=== PATIENT | male | born 1995 | race American Indian/Alaskan Native ===

== ENCOUNTER 2018-07-05 08:17 | Emergency (ER) | payer OTHER ==
[2018-07-05] MEDS ORDERED: ZOFRAN IV ONE (08:32)
[2018-07-05] MEDS ORDERED: MORPHINE IV ONE (08:32)
[2018-07-05] MEDS ORDERED: NACL 0.9% 1000 ML 1,000 ML IV ONE (08:32)
[2018-07-05] MEDS ORDERED: ZOFRAN ONE (08:34)
[2018-07-05] MEDS ORDERED: MORPHINE ONE (08:35)
[2018-07-05 09:34] LABS: Basophils % (Auto) 0.4 % (0.0-1.8); Eosinophils % (Auto) 0.6 % (0.0-4.3); Hematocrit 38.5 % (35.5-45.6); Hemoglobin 12.5 gm/dl (11.8-15.2); Lymphocytes # (Auto) 1.8 K/mm3 (1.2-5.4); Lymphocytes % (Auto) 28.1 % (13.4-35.0); Mean Corpuscular HGB Conc 32 % (32-34); Mean Corpuscular Volume 74 fl (84-94); Monocytes # (Auto) 0.4 K/mm3 (0.0-0.8); Monocytes % (Auto) 5.7 % (0.0-7.3); Platelet Count 354 K/mm3 (140-440); Red Cell Distribution Width 13.8 % (13.2-15.2)
[2018-07-05 09:47] LABS: Creatine Kinase MB 2.9 ng/mL (0.0-4.0)
[2018-07-05 09:48] LABS: Albumin 4.3 g/dL (3.9-5); BUN/Creatinine Ratio 14; Blood Urea Nitrogen 15 mg/dL (9-20); Calcium 8.9 mg/dL (8.4-10.2); Hemolysis Index 7
[2018-07-05] MEDS ORDERED: DILAUDID ONE (09:49)
[2018-07-05] MEDS ORDERED: DILAUDID IM ONE (09:51)
[2018-07-05] MEDS ORDERED: DILAUDID IV ONE (09:53)
[2018-07-05 09:59] VITALS: BP 100/72
[2018-07-05 10:33] LABS: Alanine Aminotransferase 95 units/L (7-56)
[2018-07-05 10:38] LABS: Bilirubin,Direct < 0.2 mg/dL (0-0.2)
--- NOTE | 2018-07-05 11:07 | Emergency Department Report ---
ED General Adult HPI - General Chief complaint: Abdominal Pain Stated complaint: FLANK PAIN Time Seen by Provider: 07/05/18 08:30 Source: EMS Mode of arrival: Stretcher Limitations: Other - History of Present Illness Initial comments: 23-year-old female with the acute onset of right flank pain. It did not radiate until he arrived here at which time there was radiation to the groin. He did complain of nausea and vomited once. He was treated with analgesia on arrival presumptively for renal colic. At time of my encounter his pain has resolved. He tells me that he has no known family history of kidney stone nor any prior renal colic. He denies fever or chills or dysuria. -: Sudden, hour(s) Location: right Radiation: other Severity scale (0 -10): 6 Quality: aching Consistency: constant Improves with: none Worsens with: none Associated Symptoms: denies other symptoms, nausea/vomiting Treatments Prior to Arrival: none - Related Data Previous Rx's Medication Instructions Recorded Last Taken Type HYDROcodone/APAP 5-325 [[place] 1 each PO Q6HR PRN #7 tablet 07/05/18 Unknown Rx 5/325] Allergies Allergy/AdvReac Type Severity Reaction Status Date / Time No Known Allergies Allergy Unverified 07/05/18 08:58 ED Review of Systems ROS: Stated complaint: FLANK PAIN Other details as noted in HPI Constitutional: denies: chills, fever Eyes: denies: eye pain, eye discharge, vision change ENT: denies: ear pain, throat pain Respiratory: denies: cough, shortness of breath, wheezing Cardiovascular: denies: chest pain, palpitations Endocrine: no symptoms reported Gastrointestinal: denies: abdominal pain, nausea, diarrhea Genitourinary: denies: urgency, dysuria Musculoskeletal: denies: back pain, joint swelling, arthralgia Skin: denies: rash, lesions Neurological: denies: headache, weakness, paresthesias Psychiatric: denies: anxiety, depression Hematological/Lymphatic: denies: easy bleeding, easy bruising ED Past Medical Hx - Past Medical History Previous Medical History?: No - Surgical History Past Surgical History?: No - Social History Smoking Status: Never Smoker - Medications Home Medications: Home Medications Medication Instructions Recorded Confirmed Last Taken Type HYDROcodone/APAP 5-325 [[place] 1 each PO Q6HR PRN #7 tablet 07/05/18 Unknown Rx 5/325] ED Physical Exam - General Limitations: Other (initially quite uncomfortable) General appearance: alert, in no apparent distress (now in no distress) - Head Head exam: Present: atraumatic, normocephalic - Eye Eye exam: Present: normal appearance. Absent: scleral icterus - ENT ENT exam: Present: mucous membranes moist - Neck Neck exam: Present: normal inspection. Absent: tenderness, meningismus - Respiratory Respiratory exam: Present: normal lung sounds bilaterally. Absent: respiratory distress - Cardiovascular Cardiovascular Exam: Present: regular rate, normal rhythm. Absent: systolic murmur, diastolic murmur, rubs, gallop - GI/Abdominal GI/Abdominal exam: Present: soft, normal bowel sounds. Absent: distended, tenderness, guarding, rebound, rigid - Rectal Rectal exam: Present: deferred - Extremities Exam Extremities exam: Present: normal inspection - Back Exam Back exam: Present: normal inspection - Neurological Exam Neurological exam: Present: alert, oriented X3, CN II-XII intact. Absent: motor sensory deficit - Psychiatric Psychiatric exam: Present: normal affect, normal mood - Skin Skin exam: Present: warm, dry, intact, normal color. Absent: rash ED Course Vital Signs 07/05/18 07/05/18 08:28 09:59 Temperature 97.6 F Pulse Rate 68 72 Respiratory 22 16 Rate Blood Pressure 109/89 Blood Pressure 100/72 [Left] O2 Sat by Pulse 100 100 Oximetry - Reevaluation(s) Reevaluation #1: Proved with analgesia. Still awaiting urinalysis. 07/05/18 11:06 ED Medical Decision Making - Lab Data Result diagrams: 07/05/18 09:16 07/05/18 09:16 Laboratory Results - last 24 hr 07/05/18 07/05/18 09:16 09:16 WBC 6.4 RBC 5.20 H Hgb 12.5 Hct 38.5 MCV 74 L MCH 24 L MCHC 32 RDW 13.8 Plt Count 354 Lymph % (Auto) 28.1 [place] % (Auto) 5.7 Eos % (Auto) 0.6 Baso % (Auto) 0.4 Lymph # 1.8 [place] # 0.4 Eos # 0.0 Baso # 0.0 Seg Neutrophils % 65.2 Seg Neutrophils # 4.2 Sodium 142 Potassium 4.2 Chloride 107.4 H Carbon Dioxide 23 Anion Gap 16 BUN 15 Creatinine 1.1 Estimated GFR > 60 BUN/Creatinine Ratio 14 Glucose 93 Calcium 8.9 Total Bilirubin 0.60 Direct Bilirubin < 0.2 Indirect Bilirubin 0.4 AST 49 H ALT 95 H Alkaline Phosphatase 59 Total Creatine Kinase 572 H CK-MB (CK-2) 2.9 CK-MB (CK-2) Rel Index 0.5 Total Protein 6.8 Albumin 4.3 Albumin/Globulin Ratio 1.7 - Radiology Data Radiology results: report reviewed (3 mm stone with mild hydro-at right UVJ) Critical care attestation.: If time is entered above; I have spent that time in minutes in the direct care of this critically ill patient, excluding procedure time. ED Disposition Clinical Impression: Renal colic on right side, Ureterolithiasis, Elevated CK, Elevated transaminase level Disposition: OP ADMIT IP TO THIS HOSP Is pt being admited?: No Does the pt Need Aspirin: No Condition: Stable Instructions: Kidney Stones (ED), Renal Colic (ED) Additional Instructions: Further evaluation with urologist is recommended ([facility] [facility]). He will have some mildly elevated laboratory abnormalities which require follow-up with the primary care physician. Increase fluids. Return any acute change or problem. Prescriptions: HYDROcodone/APAP 5-325 [[place] 5/325] 1 each PO Q6HR PRN #7 tablet PRN Reason: Pain Referrals: PRIMARY CARE, [Primary Care Provider] - 3-5 Days [facility] [Provider Group] - 3-5 Days [facility] [Provider Group] - 3-5 Days Time of Disposition: 11:07
--- NOTE | 2018-07-05 11:07 | Cat Scan Report ---
PROCEDURE: CT ABDOMEN PELVIS WO CON TECHNIQUE: Noncontrast CT of the abdomen and pelvis was performed. Axial images and coronal and sagit bartolo reformatted images were obtained. HISTORY: flank pain COMPARISON: None FINDINGS: The visualized lung bases are clear. Within the limitations of a noncontrast exam, the visualized liver, spleen, pancreas, adrenal glands and kidneys demonstrate no significant abnormality. There is a 2 mm obstructing stone at the right ureterovesical junction. There is no significant hydro nephrosis. There is minimal hydroureter. There is no abdominal aortic aneurysm. There is no evidence for intestinal obstruction. The appendix is normal. There is no free intraperitoneal air. There is no abnormal fluid collection seen. Bladder is unremarkable. IMPRESSION: There is a 2 mm obstructing stone at the right UVJ causing only minimal hydroureter. This document is electronically signed by Leatha Jcakson MD., July 05 2018 09:25:29 AM ET
[2018-07-05 11:36] LABS: Amphetamine Screen,Urine PRESUMPTIVE NEGATIVE; Benzodiazepines Screen,Urine PRESUMPTIVE NEGATIVE; Cocaine Screen,Urine PRESUMPTIVE NEGATIVE; Methadone Screen,Urine PRESUMPTIVE NEGATIVE
[2018-07-05 11:38] LABS: Bilirubin,Urine NEG (Negative); Blood,Urine NEG (Negative); Color,Urine Yellow (Yellow); Mucus,Urine FEW /HPF; Protein,Urine <15 mg/dL mg/dL (Negative); Urobilinogen,Urine < 2.0 mg/dL (<2.0)
[2018-07-05 11:49] LABS: Cannabinoid Screen,Urine PRESUMPTIVE POSITIVE; Opiate Screen,Urine PRESUMPTIVE POSITIVE
== END 2018-07-05 11:39 | disposition admitted as inpatient to this hospital (09) ==
LOC: ED 08:17
DX: N23 Unspecified renal colic (principal); N20.1 Calculus of ureter; R74.0 Nonspecific elevation of levels of transaminase and lactic acid dehydrogenase [LDH]; R74.8 Abnormal levels of other serum enzymes
CPT/HCPCS: 36415; 74176; 80048; 80076; 80307; 81001; 82550; 82553; 85025; 96361; 96374; 96375; 99284; J1170; J2270; J2405; J7030